=== PATIENT | male | born 1975 | race Caucasian/White ===

== ENCOUNTER 2019-02-12 20:55 | Emergency (ER) | payer BC ==
[~2019-02-12] VITALS: Ht 182.9 cm; Wt 158.8 kg
[~2019-02-12 20:55] MED LIST: ACETAMINOPHEN-1 EAC1 PO; ADVIL200 MG PO; BACTRIM DS TAB1 EACH; COLACE100 MG PO; FENOFIBRATE160 MG PO; IBUPROFEN 600600 M1 PO; KEFLEX500 MG PO; PAIN & FEVER325 MG PO; PENICILLIN VK500 MG PO; PERCOCET 5-3251 EACH PO; REQUIP 1 MG TABL1 M1 PO; ZOFRAN ODT4 MG PO; ZOFRAN4 MG PO
[2019-02-12] MEDS ORDERED: ULTRAM 50MG TAB50 MG PO (21:16)
[2019-02-12] MEDS ORDERED: METFORMIN HCL500 MG PO (21:16)
[2019-02-12 21:37] LABS: HEMATOCRIT 40.3 % (42.0-52.0); HEMOGLOBIN 13.6 gm/dL (14.0-18.0); MCH 28.9 pg (26.0-34.0); MCHC 33.7 g/dL (28.0-37.0); MCV 85.9 fL (80.0-100.0); MPV 9.5 fl. (7.2-11.1); RBC 4.69 mil/uL (4.50-6.00)
[2019-02-12 21:38] LABS: URINE BILIRUBIN NEGATIVE (Negative); URINE BLOOD 1+ (Negative); URINE CLARITY CLEAR; URINE COLOR YELLOW; URINE GLUCOSE-RANDOM NEGATIVE (Negative); URINE KETONES NEGATIVE (Negative); URINE LEUKOCYTES-REFLEX NEGATIVE (Negative); URINE NITRITE-REFLEX NEGATIVE (Negative); URINE PROTEIN NEGATIVE (Negative); URINE SPECIFIC GRAVITY >= 1.030 (1.005-1.030); URINE UROBILINOGEN 0.2 E.U./dl (0.2-1.0)
[2019-02-12 21:46] LABS: CALCIUM 8.9 mg/dL (8.5-10.1); CREATININE 0.9 mg/dL (0.6-1.3)
[2019-02-12 21:48] LABS: HYALINE CASTS 0-3 Few /LPF (None Seen)
[2019-02-12 21:49] LABS: MUCUS None Seen strn/LPF (None Seen); SQUAMOUS 4-10 Moderate /LPF (0-3)
[2019-02-12 21:50] LABS: BACTERIA-REFLEX 1-9 Few /HPF (None Seen); CRYSTALS None Seen /LPF (None Seen); URINE RBC 3-10 Few /HPF (0-2); URINE WBC-REFLEX 0-5 Rare /HPF (0-5)
[2019-02-12 21:56] LABS: ALBUMIN 3.5 g/dL (3.4-5.0); TOTAL BILIRUBIN 0.4 mg/dL (<0.1-1.0); TOTAL PROTEIN 7.4 g/dL (6.4-8.2)
[2019-02-12 22:12] LABS: SGOT 58.8 U/L (15-37)
[2019-02-12] MEDS ORDERED: FLOMAX0.4 MG PO (22:51)
[2019-02-12] MEDS ORDERED: NORCO 5-325 TA1 EAC1 PO (22:51)
[2019-02-12 23:27] VITALS: BP 113/77
== END 2019-02-12 23:30 | disposition home or self-care (01) ==
LOC: M.ERS 20:55
PROVIDERS: Nurse Practitioner
DX: N20.0 Calculus of kidney (principal); G25.81 Restless legs syndrome; F32.9 Major depressive disorder, single episode, unspecified

== ENCOUNTER 2019-05-20 16:33 | Inpatient (IN) | payer BC ==
[~2019-05-20] VITALS: Ht 180.3 cm; Wt 141.1 kg
[~2019-05-20 16:33] MED LIST changes: +FLOMAX0.4 MG PO; +METFORMIN HCL500 MG PO; +NORCO 5-325 TA1 EAC1 PO; +ULTRAM 50MG TAB50 MG PO
[2019-05-20 16:41] VITALS: BP 122/78
[2019-05-20 17:05] LABS: URINE BILIRUBIN NEGATIVE (Negative); URINE BLOOD 3+ (Negative); URINE CLARITY SL CLOUDY; URINE COLOR YELLOW; URINE GLUCOSE-RANDOM NEGATIVE (Negative); URINE KETONES NEGATIVE (Negative); URINE LEUKOCYTES-REFLEX 3+ (Negative); URINE NITRITE-REFLEX NEGATIVE (Negative); URINE PROTEIN 1+ (Negative); URINE UROBILINOGEN 0.2 E.U./dl (0.2-1.0)
[2019-05-20 17:13] LABS: URINE WBC-REFLEX >25 Many /HPF (0-5)
[2019-05-20 17:15] LABS: SQUAMOUS 4-10 Moderate /LPF (0-3)
[2019-05-20 17:16] LABS: URINE RBC 3-10 Few /HPF (0-2); WBC CLUMPS Few (None Seen)
[2019-05-20 17:17] LABS: BACTERIA-REFLEX >30 Many /HPF (None Seen); CASTS None Seen /LPF (None Seen); CRYSTALS None Seen /LPF (None Seen); MUCUS 0-3 Light strn/LPF (None Seen)
[2019-05-20 17:27] LABS: ABSOLUTE BASOPHILS 0.1 thou/uL (0.0-0.2); ABSOLUTE LYMPHOCYTES 1.6 thou/uL (0.8-5.3); ABSOLUTE MONOCYTES 1.4 thou/uL (0.0-1.2); ABSOLUTE NEUTROPHILS 7.1 thou/uL (1.6-8.1); BASOPHILS 0.8 %; EOSINOPHILS 0.1 %; HEMATOCRIT 36.7 % (42.0-52.0); HEMOGLOBIN 12.5 gm/dL (14.0-18.0); LYMPHOCYTES 15.4 %; MCH 29.4 pg (26.0-34.0); MCV 86.3 fL (80.0-100.0); MONOCYTES 13.4 %; NUCLEATED RBCS 0 /100WBC; PLATELET COUNT* 144 thou/uL (150-400); POLYS 70.3 %; RBC 4.25 mil/uL (4.50-6.00); RDW-CV 14.9 % (10.5-14.5); WBC 10.1 thou/uL (4.0-11.0)
[2019-05-20 17:38] LABS: CALCIUM 8.7 mg/dL (8.5-10.1); CREATININE 1.3 mg/dL (0.6-1.3); POTASSIUM 3.6 mmol/L (3.5-5.1)
[2019-05-20 17:45] LABS: ALBUMIN 3.6 g/dL (3.4-5.0); TOTAL BILIRUBIN 1.5 mg/dL (<0.1-1.0); TOTAL PROTEIN 7.2 g/dL (6.4-8.2)
[2019-05-20 19:26] VITALS: BP 102/57
[2019-05-21] VITALS: BP 102/44
[2019-05-21 04:00] VITALS: BP 123/62
--- NOTE | 2019-05-21 06:03 | NUR ---
PT ADMITTED TO ROOM 101 FROM OR. PT HAD STENT PLACEMENT. VSS ON 1.5L O2. ADMISSION HX AND ASSESSMENT DOCUMENTED. PAIN MEDS GIVEN THIS SHIFT. RELEIF NOTED. AND PT'S PARENTS AT BEDSIDE ON ADMISSION. THEY ALL WENT HOME AFTERWARDS. IV ABX GIVEN PER EMAR. MESSER IN PLACE TO DC THIS AM. CALL LIGHT WITHIN REACH. HOURLY ROUNDINGS MADE. WILL CONTINUE TO MONITOR.
--- NOTE | 2019-05-21 07:07 | NUR ---
AYDE MENA WILL CONTINUE TO MONITOR.
[2019-05-21 08:17] VITALS: BP 133/64
[2019-05-21 16:00] VITALS: BP 114/74
--- NOTE | 2019-05-21 18:56 | NUR ---
PATIENT AWAKE IN BED WITH FAMILY AT BEDSIDE. ALL SAFETY MEASURES MAINTAINED. AMBULATING WITH STAND BY ASSISTANCE THROUGHOUT SHIFT. PATIENT VOIDING IN URINAL. URINE BEING STRAINED. IV LEAKED AND DC'D. NEW IV PLACED. NOTIFIED DR. LAGUNAS THIS MORNING THAT AYDE WAS DC'D.
[2019-05-21 20:00] VITALS: BP 104/60
[2019-05-22 03:47] LABS: HEMATOCRIT 36.1 % (42.0-52.0); MCHC 33.2 g/dL (28.0-37.0); MCV 87.4 fL (80.0-100.0); RBC 4.13 mil/uL (4.50-6.00); RDW-CV 15.5 % (10.5-14.5); WBC 8.8 thou/uL (4.0-11.0)
[2019-05-22 04:01] LABS: CALCIUM 8.2 mg/dL (8.5-10.1); MAGNESIUM 1.9 mg/dL (1.8-2.4); POTASSIUM 3.8 mmol/L (3.5-5.1)
--- NOTE | 2019-05-22 06:10 | NUR ---
PT ALERT AND ORIENTED. VSS ON RA. ASSESSMENT DOCUMENTED. MEDS GIVEN PER EMAR. PAIN MEDS GIVEN THIS SHIFT. 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 THERE WAS NO FEVER AT THIS TIME. AFTER ABOUT 30 MINS I RECHECKED HIS TEMP AND HE HAD LOW GRADE FEVER. I GAVE TYLENOL AND ICEPACK FOR HIS FOREHEAD. UPON RECHECK PT'S TEMP WAS DOWN TO 98.2. PT SAYS HE GETS ANXIETY SOMTIMES AT HOME IN THE MIDDLE OF THE NIGHT. AND HIS USUALLY CALMS HIM DOWN. PT CALLED AND SPOKE WITH FOR A FEW MINUTES. BENADRYL GIVEN TO HELP RELAX PT. PT HAD EPISODE OF NAUSEA TOWARDS BEGINNING OF SHIFT. I GAVE HIM LEMON CAPITAN GRANDE BAND BECAUSE IT WASN'T TIME TO HAVE ANOTHER ZOFRAN HE GOT ZOFRAN TOWARDS END OF HI. HE HAD BM AFTERWARDS AND FELT MUCH BETTER. PT SLEPT OFF AND ON THIS SHIFT. CALL LIGHT WITHIN REACH. HOURLY ROUNDINGS MADE. WILL CONTINUE TO MONITOR. GRADE FEVER AT BOUT
[2019-05-22 09:02] VITALS: BP 127/63
--- NOTE | 2019-05-22 12:35 | CON ---
[address] [address] CONSULTATION Name: MIRNA HERNANDEZ JR Room: [address] IN [facility]#: [id number] Admission: 05/20/19 Attend Phys: John Hou, Discharge: Date of : 71 Report #: [id number] THIS REPORT FOR: //name// CC: Isac Hou DATE OF SERVICE: 05/21/2019 INFECTIOUS DISEASE CONSULTATION ATTENDING PHYSICIAN: John Hou MD REASON FOR EVALUATION: Sepsis, complicated urinary tract infection, obstructive uropathy due to a distal right ureteral stone. HISTORY OF PRESENT ILLNESS: Chart reviewed, patient examined. This is a 44-year-old man with a history in the distant past of MRSA-related sepsis as recently as 3 weeks ago, underwent bariatric surgery, was admitted with complaints of right-sided abdominal pain. Evaluation suggested obstructive uropathy with distal ureteral stone. Urinalysis did confirm marked pyuria, bacteriuria. He underwent operative cystoscopy with urethral dilatation, right retrograde pyelogram and ureteral stent placement on 05/20. Cultures are pending. Generally, he feels better. He has been empirically placed on ceftriaxone and vancomycin. ALLERGIES: None known. CURRENT MEDICATIONS: Include enoxaparin, tamsulosin, ceftriaxone, phenazopyridine, p.r.n. analgesics, antiemetics, vancomycin. PAST MEDICAL HISTORY: As noted above, history of MRSA-related infection, restless legs, history of depression, recent bariatric surgery. SOCIAL HISTORY: Former smoker, occasional ethanol, no illicit drug use. FAMILY HISTORY: Noncontributory. REVIEW OF SYSTEMS: Otherwise unremarkable 10-point review of systems. Denies any pulmonary-related complaints. He has not had fevers. Appetite has been good. No GI-related complaints. PHYSICAL EXAMINATION: GENERAL: He is alert, cooperative, appropriate, in mild distress. He is obese, although appears reasonably well nourished. VITAL SIGNS: Temperature 98, pulse 71, respirations 16, blood pressure 133/64. SKIN: Warm, [place] [address] CONSULTATION Name: MIRNA HERNANDEZ JR Room: [address]#: [id number] Admission: 05/20/19 Attend Phys: John Hou, Discharge: Date of : 71 Report #: [id number] HEENT: Normocephalic. Extraocular muscles intact. NECK: Supple. LUNGS: Diminished, otherwise clear breath sounds. HEART: Regular, distant. I do not appreciate any murmur. ABDOMEN: Soft, nontender, nondistended. I do not appreciate any significant CVA tenderness at this point. There is some mild discomfort on palpation of the right lower quadrant. GENITOURINARY: Deferred. RECTAL: Deferred. LABORATORY DATA: Blood cultures sterile thus far. Lactic acid 0.8. CT abdomen and pelvis preop showed 4 mm obstructing distal right ureterovesicular junction calculus extending into the bladder at the ureterovesicular junction, mild hydroureter and hydronephrosis, perinephric/periureteral stranding as well. Electrolytes: Sodium 138, potassium 3.6, chloride 102, bicarbonate 25, anion gap of 11, BUN and creatinine 12 and 1.3, total bilirubin of 1.5. LFTs unremarkable, albumin of 3.6, total protein 7.2. Estimated GFR of 59. CBC: White count of 10.1, H and H 12.5 and 36.7, platelets of 144. Urinalysis: Described above, greater than 25 white cells, greater than 30 bacteria. ASSESSMENT AND PLAN: Obstructive uropathy secondary to distal right ureteral stone at the junction. We will continue empiric therapy. I think we can discontinue the vancomycin. With likelihood of MRSA, we will give a single dose of gentamicin based on concern about possibility of resistant organisms he was hospitalized during his bariatric surgery, see how he does clinically and monitor expectantly. Add incentive spirometry. <ELECTRONICALLY SIGNED> By: Rajesh Sanabria MD 05/22/19 1235 1329 [id number] Sanabria MD /nt
[2019-05-22 16:00] VITALS: BP 113/71
--- NOTE | 2019-05-22 16:51 | NUR ---
LLQ DRAIN REMOVED WITHOUT DIFFICULTY. STERILE DRESSING APPLIED. PATIENT TOLERATED PROCEDURE WELL. STATUS STABLE
--- NOTE | 2019-05-22 17:34 | NUR ---
PATIENT AWAKE IN BED WITH FAMILY AT BEDSIDE. ALL SAFETY MEASURES MAINTAINED. PATIENT REPORTS IMPROVEMENT IN PAIN AND NAUSEA. PATIENT DENIES FUTHER NEEDS AT THIS TIME.
[2019-05-22 21:00] VITALS: BP 129/73
[2019-05-23] VITALS: BP 127/79
[2019-05-23 04:00] VITALS: BP 136/70
[2019-05-23 04:16] LABS: HEMATOCRIT 35.4 % (42.0-52.0); HEMOGLOBIN 11.7 gm/dL (14.0-18.0); MCH 29.1 pg (26.0-34.0); MPV 10.2 fl. (7.2-11.1); RBC 4.02 mil/uL (4.50-6.00); RDW-CV 15.5 % (10.5-14.5)
[2019-05-23 04:26] LABS: CALCIUM 8.3 mg/dL (8.5-10.1); MAGNESIUM 1.9 mg/dL (1.8-2.4)
--- NOTE | 2019-05-23 05:47 | NUR ---
Alert and oriented x 4. He was upset at start of the shift b/c it was a long time before I got in his room when his IV had been alarming. It was flushed and working well. I did explain to him what had happened and he did seem to not be upset. Urine is orange in color,it has been strained and no stone has been obtained. He's had pain meds x 3 this shift and benadryl x 1. He has slept intermittenly.
[2019-05-23 07:30] VITALS: BP 136/80
[2019-05-23] MEDS ORDERED: CIPRO500 MG PO (10:00)
[2019-05-23] MEDS ORDERED: FLOMAX0.4 MG PO (10:00)
[2019-05-23] MEDS ORDERED: LEVSIN0.125 MG SUBLING (10:00)
[2019-05-23] MEDS ORDERED: PHENAZOPYRIDIN100 M1 PO (10:00)
[2019-05-23] MEDS ORDERED: HYDROCODON-ACE1 EAC7 PO (10:00)
--- NOTE | 2019-05-23 10:30 | NUR ---
Nutrition: Pt admitted with Rt ureter stone. [place] urine, no stone yet. Wt: 311#. Recent bariatric surgery in March 2019. Consult received for post bariatric surg diets here in hospital. Pt is on Soft/fiber restricted diet currently. Discharge orders noted. Albumin 3.6. No nutrition interventions needed. Mild risk.
[2019-05-23] MEDS ORDERED: CEFDINIR300 MG PO (13:47)
[2019-05-23 13:48] VITALS: BP 136/80
--- NOTE | 2019-05-23 14:58 | NUR ---
ASSUMED CARE OF PATIENT 0730. ALERT AND ORIENTED X4. VSS ON ROOM AIR. PAIN MANAGED WITH HYDROCODONE. FLUIDS AND ANTIBIOTICS INFUSED ORDERED. NO OTHER COMPLAINTS THIS SHIFT. PATIENT DISCHARGED AT 1455 WITH ALL PERSONAL BELONGINGS, PRESCRIPTIONS AND DISCHARGE INFORMATION.
--- NOTE | 2019-05-28 15:30 | OP ---
[address] [address] OPERATIVE REPORT Name: MIRNA HERNANDEZ JR Room: [address]#: [id number] Admission: 05/20/19 Attend Phys: John Hou, Discharge: 05/23/19 Date of : 71 Report #: [id number] THIS REPORT FOR: //name// CC: Isac Hou DATE OF SERVICE: 05/20/2019 UROLOGY OPERATIVE NOTE PREOPERATIVE DIAGNOSES: Right distal ureteral stone, urinary tract infection and hydronephrosis. POSTOPERATIVE DIAGNOSES: Urethral stricture, right distal ureteral stone, urinary tract infection and hydronephrosis. PROCEDURE PERFORMED: Cystoscopy with urethral dilation, right retrograde pyelogram and ureteral stent placement. SURGEON: Dave Clancy MD ANESTHESIA: General. ESTIMATED BLOOD LOSS: Minimal. COMPLICATIONS: None. INDICATION FOR PROCEDURE: This is a 44-year-old gentleman, who presented with acute right flank pain lasting for approximately 1 day. He has history of kidney stones. He underwent a CAT scan, which revealed right distal ureteral stone with moderate hydronephrosis. He also has urinalysis, which indicates infection. He has had a subjective fever at home. His options for management were discussed in detail and he has elected to proceed with cystoscopy with right retrograde pyelogram and ureteral stent placement. He also notes he has a history of inability to have a catheter placed at the time of other surgeries, indicating possible urethral stricture. The risks, benefits and possible complications of the procedure were explained in detail with he and his . In the preoperative area, they had a chance to ask questions, which were answered to their satisfaction and they elected to proceed. DESCRIPTION OF OPERATION: After obtaining informed consent, the patient was taken to the operating room and placed in supine position. After adequate general anesthesia and IV antibiotics, he was prepped and draped in dorsal lithotomy position. A 21-Indonesian cystoscope with 30-degree lens was introduced into the anterior urethra. There was normal caliber all the way down to the deep bulbar urethra where there was a tight stricture. [place] [address] OPERATIVE REPORT Name: MIRNA HERNANDEZ JR Room: [address]#: [id number] Admission: 05/20/19 Attend Phys: John Hou, Discharge: 05/23/19 Date of : 71 Report #: [id number] 6-7 mm in length and about 12-Indonesian in circumference. It was unable to be passed with a cystoscope, so a guidewire was passed in retrograde fashion. Amplatz dilators were used starting at 12-Indonesian and working up to 22-Indonesian. Once this had been done, the cystoscope was then easily passed through the dilated area into the prostatic urethra, which was normal and the bladder was inspected. There was a moderate amount of purulent drainage from the bladder. Once this had been drained, the bladder was systematically inspected. There was mild erythema throughout consistent with urinary tract infection. Otherwise, no stones, tumors or diverticula were noted. The right ureteral orifice was identified. It did appear that the stone was visible approximately 2-3 mm into the ureter. An open-ended ureteral catheter was attempted to be utilized to manipulate the stone out of the ureter, but it only passed more proximal. A retrograde pyelogram was performed, which revealed a 4-5 mm filling defect in the distal ureter with moderate proximal hydronephrosis. A sensor guidewire was passed in retrograde fashion and a moderate amount of purulent drainage was noted around the wire. It was determined that no further manipulation of the stone would be performed, so a 4.8 x 28-cm double-J ureteral stent was passed in retrograde fashion over the wire. A good coil was noted overlying the renal pelvis under fluoroscopy and a good coil was directly visualized in the bladder. Moderate hydronephrotic drip was noted through the ureteral stent. The cystoscope was removed. It was determined that a catheter will be placed for maximal drainage. The catheter was placed without difficulty and 10 mL of sterile water was placed in the balloon. Uro-Jet was applied per urethra. B and O suppository was placed per rectum. The patient was extubated and taken to recovery room in good condition. PLAN: To admit him overnight for observation. Continue IV antibiotics. Await urine cultures. Discontinue when afebrile and stable. Voiding trial prior to discharge. Follow up in 1-2 weeks for definitive management of his ureteral stone. <ELECTRONICALLY SIGNED> By: Daev Clancy MD 05/28/19 1530 2046 [id number] Clancy MD /luan
[2019-05-29 09:10] LABS: STONE COLOR Tan (()); STONE SIZE <1x1x1 mm (()); STONE SODIUM ACID URATE 100 % (()); STONE WEIGHT 1.1 mg (())
== END 2019-05-23 14:55 | disposition home or self-care (01) | DRG 660 ==
LOC: M.ERS 16:33 → M.TBA-ER 18:54 → M.ORTHSURG 18:54
PROVIDERS: Internal Medicine; Nurse Practitioner Family; ADMIT Family Medicine
PROC: 0T768DZ Dilation of Right Ureter with Intraluminal Device, Via Natural or Artificial Opening Endoscopic (ICD-10-PCS; principal; 2019-05-20)
PROC: BT1D1ZZ Fluoroscopy of Right Kidney, Ureter and Bladder using Low Osmolar Contrast (ICD-10-PCS; principal; 2019-05-20)
DX: N13.6 Pyonephrosis (principal); R65.10 Systemic inflammatory response syndrome (SIRS) of non-infectious origin without acute organ dysfunction; Z68.41 Body mass index [BMI] 40.0-44.9, adult; G25.81 Restless legs syndrome; F32.9 Major depressive disorder, single episode, unspecified; E66.01 Morbid (severe) obesity due to excess calories; N35.919 Unspecified urethral stricture, male, unspecified site; B96.20 Unspecified Escherichia coli [E. coli] as the cause of diseases classified elsewhere; Z86.14 Personal history of Methicillin resistant Staphylococcus aureus infection; Z87.891 Personal history of nicotine dependence; Z95.1 Presence of aortocoronary bypass graft; Z79.899 Other long term (current) drug therapy

== ENCOUNTER → 2019-06-13 | Day surgery (SDC) | payer BC ==
[~2019-06-13] MED LIST changes: +CEFDINIR300 MG PO; +CIPRO500 MG PO; +HYDROCODON-ACE1 EAC7 PO; +LEVSIN0.125 MG SUBLING; +PHENAZOPYRIDIN100 M1 PO
--- NOTE | 2019-06-17 08:54 | OP ---
[address] [address] OPERATIVE REPORT Name: MIRNA HERNANDEZ JR Room: [facility]#: [id number] Admission: 06/13/19 Attend Phys: Dave Clancy MD Discharge: Date of : 71 Report #: [id number] THIS REPORT FOR: //name// CC: Isac Clancy DATE OF SERVICE: 06/13/2019 UROLOGY OPERATIVE NOTE PREOPERATIVE DIAGNOSIS: Right ureteral stone. POSTOPERATIVE DIAGNOSIS: Right ureteral stone. PROCEDURE PERFORMED: Cystoscopy with right retrograde pyelogram, ureteroscopy and stent extraction. SURGEON: Dave Clancy MD ANESTHESIA: General. ESTIMATED BLOOD LOSS: Minimal. COMPLICATIONS: None. INDICATION FOR PROCEDURE: This is a 44-year-old gentleman who presented with acute right flank pain, was found to have a right distal ureteral stone. This was mid May 2019. The stone was about 3-4 mm at the ureterovesical junction. He underwent cystoscopy with urethral dilation and stent placement for the stone and a concurrent urinary tract infection. He has had the stent for several weeks and now presents for definitive management of stone. The risks, benefits, possible complications were explained in detail to both he and his in the preoperative area. They had a chance to ask questions, which were answered to their satisfaction and they elected to proceed. DESCRIPTION OF PROCEDURE: After obtaining informed consent, the patient was taken to the operating room and placed in supine position. After adequate general anesthesia and IV antibiotics, he was prepped and draped in the dorsal lithotomy position. A 21-Hungarian cystoscope with 30-degree lens was introduced into the urethra, which was normal caliber all the way down to the bulbar urethra, where there was a slight narrowing where the stricture had been prior, but was estimated about 99-34-Qktpcc, was easily passable with the 21-Hungarian cystoscope. Upon entering the bladder, the bladder was systematically inspected. There was moderate amount of blood clot in the base of the bladder. This was irrigated out and the right ureteral stent was noted. There was some mild amount of encrustation on the distal end. [place] [address] OPERATIVE REPORT Name: MIRNA HERNANDEZ JR Room: [facility]#: [id number] Admission: 06/13/19 Attend Phys: Dave Clancy MD Discharge: Date of : 71 Report #: [id number] alongside the stent and into the renal pelvis under fluoroscopic guidance. Stent was grasped and removed. Flexible ureteroscopy was then carried out alongside the wire into the distal ureter. There was a small amount of calcification and debris, small amount of blood clot. No visible stone. The scope was passed all the way up to the kidney and all the calices were inspected. Again, there was note made of several small blood clots, but otherwise no stones or stone fragments. The ureter was again inspected with removal of the ureteroscope. The wire was removed and retrograde pyelogram was performed. A normal caliber ureter all the way up to the renal pelvis, which was mildly capacious. There is some mild hydro throughout consistent with recent indwelling stent. There was no evidence of any stones or filling defects within the ureter. Upon removal of the ureteroscope, there was prompt drainage of the contrast and several small blood clots were noted to pass through the ureteral orifice. The bladder was drained. Uro-Jet was applied per urethra. The patient was extubated and taken to recovery room in good condition. Plan is to follow up in 2-3 weeks to discuss future stone prevention. <ELECTRONICALLY SIGNED> By: Dave Clancy MD 06/17/19 0854 1240 [id number] Clancy MD /nt
== END | disposition home or self-care (01) ==
LOC: M.SUR 06:54
DX: N20.1 Calculus of ureter (principal); Z87.442 Personal history of urinary calculi; Z87.440 Personal history of urinary (tract) infections; Z98.84 Bariatric surgery status; Z98.890 Other specified postprocedural states; Z79.891 Long term (current) use of opiate analgesic

== ENCOUNTER 2019-09-12 16:37 | Emergency (ER) | payer BC ==
[~2019-09-12] VITALS: Ht 182.9 cm; Wt 117.9 kg
[2019-09-12 16:59] LABS: ABSOLUTE EOSINOPHILS 0.1 thou/uL (0.0-0.7); ABSOLUTE LYMPHOCYTES 2.4 thou/uL (0.8-5.3); ABSOLUTE MONOCYTES 0.5 thou/uL (0.0-1.2); ABSOLUTE NEUTROPHILS 4.5 thou/uL (1.6-8.1); BASOPHILS 0.6 %; EOSINOPHILS 1.8 %; HEMATOCRIT 40.4 % (42.0-52.0); LYMPHOCYTES 31.8 %; MCH 29.8 pg (26.0-34.0); MCHC 34.6 g/dL (28.0-37.0); MCV 86.2 fL (80.0-100.0); MONOCYTES 7.1 %; MPV 9.2 fl. (7.2-11.1); NUCLEATED RBCS 0 /100WBC; PLATELET COUNT* 182 thou/uL (150-400); POLYS 58.7 %; RBC 4.69 mil/uL (4.50-6.00); RDW-CV 14.9 % (10.5-14.5); WBC 7.6 thou/uL (4.0-11.0)
[2019-09-12 17:05] LABS: CALCIUM 8.4 mg/dL (8.5-10.1); POTASSIUM 3.5 mmol/L (3.5-5.1)
[2019-09-12 17:08] LABS: APTT 25.9 Seconds (25.0-31.3); PROTIME 10.4 Seconds (9.20-11.50)
[2019-09-12 17:22] LABS: ALBUMIN 3.8 g/dL (3.4-5.0); MAGNESIUM 2.2 mg/dL (1.8-2.4); TOTAL BILIRUBIN 0.5 mg/dL (<0.1-1.0); TOTAL PROTEIN 7.6 g/dL (6.4-8.2)
[2019-09-12 20:00] VITALS: BP 125/84
--- NOTE | 2019-09-14 10:32 | EKG ---
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
--- NOTE | 2019-09-14 10:32 | EKG ---
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1975 Requested By: Peter Trejo Order Number: [id number] MD: Antonino Lino Measurements Intervals [place] Rate: 51 P: 50 [place]: 152 QRS: 84 QRSD: 101 T: 111 QT: 453 QTc: 418 Interpretive Statements Sinus rhythm Nonspecific T abnormalities, lateral leads No previous ECG available for comparison Electronically Signed On 09-14-2019 10:32:22 FAMILY [employer] LEGAL ASSISTANT by Antonino Lino [email or web address] <ELECTRONICALLY SIGNED> By: Vanesa Lino MD, [facility] 09/14/19 1032 1850 49 Vanesa Lino MD, FACC /EPI
== END 2019-09-12 20:00 | disposition home or self-care (01) ==
LOC: M.ERS 16:37
PROVIDERS: Emergency Medicine Emergency Medical Services
DX: R07.89 Other chest pain (principal); G25.81 Restless legs syndrome; Z86.14 Personal history of Methicillin resistant Staphylococcus aureus infection

== ENCOUNTER 2021-03-11 09:22 | Emergency (ER) | payer BC ==
[~2021-03-11] VITALS: Ht 182.9 cm; Wt 111.1 kg
[2021-03-11] MEDS ORDERED: [UNRECOGNIZED DRUG - OTHER] (09:32)
[2021-03-11] MEDS ORDERED: PERCOCET PO (13:36)
[2021-03-11] MEDS ORDERED: PREDNISONE 20 M20 M1 PO (13:36)
[2021-03-11] MEDS ORDERED: FLEXERIL PO (13:56)
[2021-03-11 14:15] VITALS: BP 127/77
== END 2021-03-11 14:15 | disposition home or self-care (01) ==
LOC: M.ERS 09:22
DX: M48.061 Spinal stenosis, lumbar region without neurogenic claudication (principal); M51.36 Other intervertebral disc degeneration, lumbar region